=== PATIENT | male | born 1955 ===

== ENCOUNTER 2021-04-12 15:26 | Emergency (ER) | payer MEDICARE ==
[2021-04-12 15:48] VITALS: TEMP 98.2
[2021-04-12] MEDS ORDERED: HYDROmorphone 1 MG/ML 1 ML SYRINGE IM STA (16:24)
--- NOTE | 2021-04-12 16:29 | CT ---
EXAMINATION TYPE: CT brain andrea piper DATE OF EXAM: 04/12/2021 COMPARISON: NONE HISTORY: Fall with posterior head injury. CT DLP: 1377.9 mGycm. Automated Exposure Control for Dose Reduction was Utilized. TECHNIQUE: CT scan of the head and cervical spine are performed without contrast. FINDINGS: There is no acute intracranial hemorrhage or midline shift identified. Mild ventricular a nd sulcal prominence. Mild low attenuation in periventricular white matter. The calvarium is intact. The globes are intact and the visualized sinuses are clear. Vascular calcification distal internal c arotid arteries bilaterally. Cervical spine is visualized in its entirety from C1 through upper thoracic levels and demonstrates s atisfactory alignment without evidence of acute fracture or dislocation. Prevertebral soft tissue ap pears within normal limits. The C1-C2 articulation is within normal limits on coronal images. Verte bral body heights and disc space heights are maintained. Axial images show multilevel left-sided unco vertebral facet degenerative changes causing multilevel left-sided neural foraminal narrowing. There is partial visualization of comminuted displaced fracture left mid to distal clavicle axial marlon [id number] for reference. Lung apices show severe apical pleural/parenchymal thickening and scarring bilat erally. There is moderate calcified plaque bilateral carotid bulb level. IMPRESSION: 1. There is no acute fracture or dislocation evident in the cervical spine. 2. No acute intracranial hemorrhage or midline shift is seen. 3. Acute displaced mid to distal clavicular fracture partially imaged.
[2021-04-12 16:44] VITALS: BP 156/109; PULSE 99; RESP 16
--- NOTE | 2021-04-12 16:57 | XR ---
EXAMINATION TYPE: XR shoulder complete LT DATE OF EXAM: 04/12/2021 4:25 PM INDICATION: Patient age:Male; 65 years old; Reason for study: fall; COMPARISON: CT C-spine same day TECHNIQUE: The left shoulder was examined in AP, internally rotated and axillary projections. FINDINGS: Acute fracture of the left distal radius with. There is airspace hazy opacities are seen within the l ungs, as seen on prior CT. IMPRESSION: Left distal radius fracture without significant displacement.
--- NOTE | 2021-04-12 17:24 | ED ---
General Adult HPI - General Chief complaint: Fall Stated complaint: slip & fall, hit head Time Seen by Provider: 04/12/21 15:42 Source: patient, RN notes reviewed, old records reviewed Mode of arrival: ambulatory Limitations: no limitations - History of Present Illness Initial comments: 65-year-old male presenting status post fall. Patient slipped on the ice, falling onto his left shoulder. There was some head injury without loss consciousness. Patient's main complaint is pain to the left shoulder. No injury to the elbow or wrist. No chest pain or abdominal pain. This was mechanical fall. - Related Data Allergies Allergy/AdvReac Type Severity Reaction Status Date / Time Penicillins Allergy Rash/Hives Verified 04/12/21 15:49 strawberries Allergy Unknown Uncoded 04/12/21 15:49 Review of Systems ROS Statement: Those systems with pertinent positive or pertinent negative responses have been documented in the HPI. ROS Other: All systems not noted in ROS Statement are negative. Past Medical History Past Medical History: Coronary Artery Disease (CAD), Hypertension Additional Past Medical History / Comment(s): liver lesion History of Any Multi-Drug Resistant Organisms: None Reported Past Surgical History: Back Surgery, Heart Catheterization With Stent, Joint Replacement Additional Past Surgical History / Comment(s): lung surgery, Past Psychological History: No Psychological Hx Reported Smoking Status: Former smoker Past Alcohol Use History: None Reported, Abuse, Daily Past Drug Use History: None Reported General Exam Limitations: no limitations General appearance: alert, in no apparent distress Head exam: Present: atraumatic, normocephalic Eye exam: Present: normal appearance, PERRL ENT exam: Present: normal exam Neck exam: Present: normal inspection. Absent: tenderness, meningismus Respiratory exam: Present: normal lung sounds bilaterally. Absent: respiratory distress, wheezes Cardiovascular Exam: Present: regular rate, normal rhythm GI/Abdominal exam: Present: soft. Absent: distended, tenderness, guarding Extremities exam: Present: tenderness, joint swelling, other (Tenderness over the left shoulder, no gross deformity, distal pulses are intact). Absent: full ROM Neurological exam: Present: alert, oriented X3, CN II-XII intact. Absent: motor sensory deficit Psychiatric exam: Present: normal affect, normal mood Skin exam: Present: warm, dry, intact. Absent: cyanosis, diaphoretic Course Vital Signs 04/12/21 04/12/21 15:41 16:41 Temperature 98.2 F Pulse Rate 108 H 99 Respiratory 20 16 Rate Blood Pressure 128/83 156/109 O2 Sat by Pulse 97 99 Oximetry Medical Decision Making - Medical Decision Making 65-year-old with mechanical fall, left shoulder injury, he did have head injury, CT performed of the brain and C-spine which is negative for traumatic injury. X-ray shows a distal left clavicle fracture. Patient has good pain control emergency department. He will take Tylenol Motrin at home. He's placed in a sling. He is given orthopedic follow-up. Disposition Clinical Impression: Fall, Clavicle fracture Disposition: HOME SELF-CARE Condition: Good Instructions (If sedation given, give patient instructions): Clavicle Fracture (ED) Is patient prescribed a controlled substance at d/c from ED?: No Referrals: None,Stated [Primary Care Provider] - 1-2 days Елена Contreras DO [Doctor of Osteopathic Medicine] - 1-2 days Time of Disposition: 17:23
== END 2021-04-12 17:32 | disposition home or self-care (01) ==
LOC: EC 15:26
DX: S42.002A Fracture of unspecified part of left clavicle, initial encounter for closed fracture (principal); Z88.0 Allergy status to penicillin; Z91.018 Allergy to other foods; I10 Essential (primary) hypertension; Z87.891 Personal history of nicotine dependence; W00.0XXA Fall on same level due to ice and snow, initial encounter
CPT/HCPCS: 99284; 73030; 72125; 70450; 96372; J1170